=== PATIENT | male | born 1940 | race Hispanic/Latino ===

== ENCOUNTER 2017-02-24 13:01 | Day surgery (SDC) | payer MEDICARE ==
[2017-02-18 11:50] LABS: Basophils % (Auto) 0.7 % (0.0-1.8); Eosinophils % (Auto) 1.9 % (0.0-4.3); Hemoglobin 12.2 gm/dl (11.8-15.2); Mean Corpuscular HGB Conc 32 % (32-34); Mean Corpuscular Hemoglobin 27 pg (28-32); Mean Corpuscular Volume 84 fl (84-94); Platelet Count 273 K/mm3 (140-440); Red Blood Count 4.53 M/mm3 (3.65-5.03); Red Cell Distribution Width 15.8 % (13.2-15.2); White Blood Count 9.9 K/mm3 (4.5-11.0)
[2017-02-18 12:16] LABS: Albumin 3.7 g/dL (3.9-5); BUN/Creatinine Ratio 26.66; Bilirubin,Total 0.3 mg/dL (0.1-1.2); Chloride 101.4 mmol/L (98-107); Potassium 5.4 mmol/L (3.6-5.0); Total Protein 7.4 g/dL (6.3-8.2)
--- NOTE | 2017-02-19 08:06 | Anesthesia Consultation ---
Anesthesia Consult and Med Hx Date of service: 02/24/17 - Airway Anesthetic Teeth Evaluation: Dentures ROM Head & Neck: Adequate Mental/Hyoid Distance: Adequate Mallampati Class: Class II Intubation Access Assessment: Probably Good - Pulmonary Exam CTA: Yes - Cardiac Exam Cardiac Exam: RRR - Pre-Operative Health Status ASA Pre-Surgery Classification: ASA3 Proposed Anesthetic Plan: General - Pulmonary Hx Smoking: No Hx Asthma: No Hx Respiratory Symptoms: No SOB: No COPD: No Hx Sleep Apnea: No - Cardiovascular System Hx Hypertension: Yes Hx Coronary Artery Disease: Yes Hx Heart Attack/AMI: Yes (s/p CABG 2011) Hx Angina: No - Central Nervous System Hx Seizures: No CVA: No Hx Psychiatric Problems: No - Gastrointestinal Hx Gastroesophageal Reflux Disease: No - Endocrine Hx Renal Disease: Yes (CKD) Hx Cirrhosis: No Hx Non-Insulin Dependent Diabetes: Yes Hx Thyroid Disease: No - Hematic Hx Anemia: Yes - Other Systems Hx Alcohol Use: No Hx Substance Use: No Hx Cancer: Yes (prostate) - Additional Comments Anesthesia Medical History Comments: CARDIAC CLEARANCE ON CHART. LMA #5 USED LAST SURGERY.
[~2017-02-24 13:01] MED LIST: NACL 0.9% 1000 ML 1,000 ML IV SCH; PEPCID PO NR
[2017-02-24] MEDS ORDERED: NACL BACTERIOSTATIC INFILTRATI ONE (14:57)
[2017-02-24] MEDS ORDERED: DILAUDID IV PRN (15:11)
[2017-02-24] MEDS ORDERED: PERCOCET 5/325 PO PRN (15:11)
[2017-02-24] MEDS ORDERED: ZOFRAN IV PRN (15:11)
[2017-02-24] MEDS ORDERED: PEPCID PO NR (16:00)
[2017-02-24] MEDS ORDERED: VERSED IV NR (16:00)
[2017-02-24] MEDS ORDERED: NACL 0.9% 1000 ML 1,000 ML IV SCH (16:00)
[2017-02-24] MEDS ORDERED: DIPRIVAN 10 MG/ML IV ONE (17:17)
[2017-02-24] MEDS ORDERED: DILAUDID ONE (17:17)
[2017-02-24] MEDS ORDERED: XYLOCAINE MPF 2% ONE (17:17)
--- NOTE | 2017-02-24 17:55 | Short Stay Summary ---
Short Stay Documentation Date of service: 02/24/17 - History H&P: obtained from office - Allergies and Medications Current Medications: Allergies ciprofloxacin [From Cipro] Allergy (Verified 02/24/17 14:35) Dizziness ciprofloxacin HCl [From Cipro] Allergy (Verified 02/24/17 14:35) Dizziness hydrocodone Allergy (Verified 04/02/16 12:27) Unknown Iodinated Contrast Media - IV Dye Adverse Reaction (Verified 04/02/16 12:29) Anaphylaxis Home Medications Medication Instructions Recorded Confirmed Last Taken Type Aspirin [Aspirin BABY CHEW TAB] 162 mg PO QDAY 07/15/15 02/13/17 01/05/17 History Atenolol [Tenormin] 100 mg PO DAILY 07/15/15 02/13/17 02/24/17 07:30 History Glimepiride [Amaryl] 4 mg PO BID 07/15/15 02/13/17 02/23/17 History Lisinopril [Zestril TAB] 10 mg PO QDAY 07/15/15 02/24/17 02/24/17 07:30 History Lovastatin [Altoprev] 40 mg PO QDAY 07/15/15 02/24/17 02/23/17 History amLODIPine [Norvasc] 5 mg PO DAILY 07/15/15 02/13/17 02/24/17 07:30 History metFORMIN [Glucophage] 500 mg PO BID 07/15/15 02/13/17 02/23/17 History Insulin Detemir [Levemir Flextouch] 0 unit SQ QHS 02/13/17 02/13/17 02/23/17 History Sitagliptin Phosphate [Januvia] 100 mg PO DAILY 02/13/17 02/24/17 02/23/17 History Active Medications Cefazolin Sodium (Ancef/Sterile Water 2 Gm/20 Ml) 2 gm IV PREOP NR Famotidine (Pepcid) 20 mg PO PREOP NR Stop: 02/24/17 23:00 Hydromorphone HCl (Dilaudid) 0.25 mg IV Q10MIN PRN PRN Reason: Pain, Moderate (4-6) Stop: 02/27/17 15:12 Sodium Chloride (Nacl 0.9% 1000 Ml) 1,000 mls @ 100 mls/hr IV DIRECT MISSY Midazolam HCl (Versed) 1 mg IV PREOP NR Stop: 02/24/17 23:59 Last Admin: 02/24/17 16:14 Dose: 1 mg - Brief post op/procedure progress note Date of procedure: 02/24/17 Pre-op diagnosis: urethral stricture / stones Post-op diagnosis: same Procedure: cysto dilation rupal rpg Anesthesia: BEKAH Surgeon: TASHI BACA Estimated blood loss: minimal Pathology: none Condition: stable - Hospital course Hospital course: orpacuhome - Disposition Condition at discharge: Good Disposition: DC-01 TO HOME OR SELFCARE Short Stay Discharge Plan Activity: advance as tolerated Diet: advance as tolerated Additional Instructions: CALL DR BACA OFFICE FOR ANY QUESTIONS OR CONCERNS KEEP FOLLOW UP APPOINTMENT Follow up with: TASHI BACA MD [Staff Physician] - 7 Days Forms: Outpatient Surgery DC Inst.
[2017-02-24] MEDS ORDERED: ANCEF/STERILE WATER 2 GM/20 ML IV NR (18:00)
[2017-02-24] MEDS ORDERED: OMNIPAQUE (300 MG) IV ONE (18:11)
[2017-02-24] MEDS ORDERED: WATER FOR IRRIG STERILE IR ONE (18:11)
[2017-02-24] MEDS ORDERED: ZOFRAN ONE (18:29)
--- NOTE | 2017-02-24 19:52 | Anesthesia Day of Surgery ---
Anesthesia Day of Surgery - Day of Surgery Patient Examined: Yes Patient H&P Reviewed: Yes Patient is NPO: Yes Beta Blockers: Yes
--- NOTE | 2017-02-24 19:53 | Post Anesthesia Evaluation ---
- Post Anesthesia Evaluation Patient Participated: Yes Airway Patent: Yes Stable Respiratory Function: Yes Temp > 96.8F: Yes Pain Manageable: Yes Adequeate Hydration: Yes Anesthesia Complications: No Block Receding Appropriately: Not Applicable
[2017-02-24 22:27] VITALS: BP 143/46
--- NOTE | 2017-02-25 11:27 | Fluoroscopy Report ---
Retrograde pyelogram; cystogram: The initial image prior to contrast demonstrates a large number of surgical clips in the pelvis consistent with rebekah dissection. Injection of contrast into the ureters bilaterally demonstrate good opacification of unremarkable ureters and intrarenal collecting systems. Injection of contrast into the bladder initially demonstrates a dilated Cameron balloon centrally with contrast surrounding the balloon in a minimally distended bladder. The margins of the bladder are smooth. No filling defects otherwise noted. The balloon apparently was decompressed for an additional image with no additional findings.
--- NOTE | 2017-03-02 14:22 | Operative Report ---
PREOPERATIVE DIAGNOSES: 1. Prostate cancer. 2. Recurrent ureteral stones. 3. Recurrent urethral stricture. SURGEON: Pancho Antoine MD ANESTHESIA: General. SPECIMENS: None. ESTIMATED BLOOD LOSS: Minimal. COMPLICATIONS: None. FINDINGS: Good overgrowth of the UroLume which was taken several years. No stones reforming was stenosed and strictured, bilateral RPG is normal. PROCEDURE: Cystoscopy, bilateral RPG, ureteral dilation. CLINICAL INDICATIONS: The patient was counseled RCBA, antibiotics, SCDs. JOB# [id number] ATS/NTS
--- NOTE | 2017-03-24 12:47 | Operative Report ---
PREOPERATIVE DIAGNOSES: 1. Prostate cancer. 2. Urinary incontinence. 3. Urethral stricture disease. 4. History of chronic and recurrent urethral stones. POSTOPERATIVE DIAGNOSES: 1. Prostate cancer. 2. Urinary incontinence. 3. Urethral stricture disease. 4. History of chronic and recurrent urethral stones. PROCEDURE: Cystoscopy, bilateral RPG, urethral dilation. SURGEON: Pancho Antoine M.D. ANESTHESIA: General. SPECIMENS: None. ESTIMATED BLOOD LOSS: Minimal. COMPLICATIONS: None. FINDINGS: Good overgrowth of UroLume, much improved, but stenosed, strictured. CLINICAL INDICATIONS: Counseled RCBA, antibiotics, SCDs. The patient had a UroLume placed by someone else with exposure of metal with recurrent obstructions and stones having been removed periodically every several months. Eventually, we were able to get the urethral mucosa to overgrow the UroLume, but does get some periodic stenosis, had antibiotics and SCDs. DESCRIPTION OF PROCEDURE: Transferred to the OR suite in supine position, anesthesia, dorsal lithotomy, prepped and draped in standard fashion. A 20-Martiniquais scope passed. Normal penile urethra, bulbar urethra with urethral stricture and stenosis. A Glidewire was passed into the bladder under fluoroscopic visualization dilated with S-curve dilators to 20-Martiniquais. Rigid scope was then passed passing the bladder. Pancystoscopy 30 and 70 degree lens, no tumors or lesions. Right UO cannulated 8-Martiniquais cone-tipped catheter, contrast injected. Normal right distal ureter, proximal ureter, renal pelvis calyces. No filling defects or hydronephrosis. Repeated on the left side with similar normal left retrograde with no abnormal findings. Scope was withdrawn. An 18-Martiniquais point lay ira-tip catheter was passed over the wire under direct and fluoroscopic visualization. When the wire was removed and balloon had been inflated to 10 mL, confirmed in good position and irrigated easily. Exam under anesthesia, bilateral testicles, no masses, no nodules. The patient awakened and transferred to the PACU in good and stable condition. JOB# [id number] ATS/NTS
== END 2017-02-24 20:15 | disposition home or self-care (01) ==
LOC: OR 13:01
PROVIDERS: ATTEND Urology
DX: N35.9 Urethral stricture, unspecified (principal); C61 Malignant neoplasm of prostate; E11.22 Type 2 diabetes mellitus with diabetic chronic kidney disease; I12.9 Hypertensive chronic kidney disease with stage 1 through stage 4 chronic kidney disease, or unspecified chronic kidney disease; N18.9 Chronic kidney disease, unspecified; I25.10 Atherosclerotic heart disease of native coronary artery without angina pectoris; D64.9 Anemia, unspecified; Z87.442 Personal history of urinary calculi; Z88.1 Allergy status to other antibiotic agents; Z88.8 Allergy status to other drugs, medicaments and biological substances; Z91.041 Radiographic dye allergy status; Z79.899 Other long term (current) drug therapy; Z79.4 Long term (current) use of insulin; Z95.1 Presence of aortocoronary bypass graft
CPT/HCPCS: 36415; 52281; 74420; 74430; 80053; 82962; 84132; 85025; A4217; C1726; C1758; C1769; J0690; J1170; J2250; J2405; J2704; J7030; Q9967